=== PATIENT | female | born 2000 | race Two or more races ===

== ENCOUNTER 2023-03-21 23:55 | Emergency (ER) | payer OTHER ==
[~2023-03-21] VITALS: Ht 162.6 cm; Wt 106.0 kg
[2023-03-22 01:27] LABS: Basophils # (auto) 0 10 ^3/uL (0-0.2); Basophils % (auto) 0.2 % (0.0-2.0); Eosinophils # (auto) 0.2 10 ^3/uL (0-0.8); Eosinophils % (auto) 2.1 % (0.0-7.0); Hematocrit 33.5 % (36.0-46.0); Lymphocytes # (auto) 1.9 10 ^3/uL (0.4-5.4); Lymphocytes % (auto) 19.3 % (10.0-50.0); Mean Corpuscular Hemoglobin 27.5 pg (28.0-32.0); Mean Corpuscular Hgb Conc. 32.9 g/dL (32.0-36.0); Mean Corpuscular Volume 83.7 fL (80.0-100.0); Monocytes # (auto) 0.7 10 ^3/uL (0-1.3); Monocytes % (auto) 6.5 % (0.0-12.0); Neutrophils # (auto) 7.2 10 ^3/uL (1.6-8.6); Neutrophils % (auto) 71.9 % (37.0-80.0); Nucleated Red Blood Cells % 0.1 %; Red Blood Cells 4.01 10^6/uL (4.0-5.20); Red Cell Distribution Width 18.2 % (11.8-14.3)
[2023-03-22 01:33] LABS: Albumin 3.3 g/dL (3.4-5.0); Calcium 8.6 mg/dL (8.5-10.1); Potassium 3.8 mmol/L (3.5-5.1)
[2023-03-22 01:34] LABS: BUN/Creatinine Ratio 19.7 (10.0-20.0)
[2023-03-22 01:47] LABS: Bilirubin, Total 0.2 mg/dL (0.2-1.0); Total Protein 7.5 g/dL (6.4-8.2)
[2023-03-22 02:12] LABS: Urine Bacteria FEW /hpf (None Seen); Urine Blood Negative /uL (Negative); Urine Mucus FEW (None Seen); Urine Specific Gravity 1.023 (1.001-1.035); Urine WBC 24 /hpf (0 - 5)
[2023-03-22] MEDS ORDERED: CEPH500T PO (02:29)
[2023-03-22] MEDS ORDERED: PHEN95TA10 PO (02:29)
[2023-03-22] MEDS ORDERED: ACET-6 PO (02:29)
[2023-03-22] MEDS ORDERED: CEPHALEXIN 250 MG CAP PO ONE (02:30)
[2023-03-22] MEDS ORDERED: PHENAZOPYRIDINE HCL 100 MG TAB PO ONE (02:30)
[2023-03-22 03:33] VITALS: BP 128/53
== END 2023-03-22 03:39 | disposition home or self-care (01) ==
LOC: ER 23:55
DX: N39.0 Urinary tract infection, site not specified (principal)
CPT/HCPCS: 36415; 80053; 81001; 85025

== ENCOUNTER 2023-04-15 21:28 | Emergency (ER) | payer OTHER ==
[~2023-04-15] VITALS: Ht 162.6 cm; Wt 106.2 kg
[~2023-04-15 21:28] MED LIST: ACET-6 PO; CEPH500T PO; PHEN95TA10 PO
[2023-04-15 22:17] LABS: Basophils # (auto) 0 10 ^3/uL (0-0.2); Basophils % (auto) 0.3 % (0.0-2.0); Eosinophils # (auto) 0.1 10 ^3/uL (0-0.8); Hemoglobin 11.6 g/dL (12.2-16.2); Monocytes # (auto) 0.7 10 ^3/uL (0-1.3); White Blood Cell 8.6 10^3/uL (4.4-10.8)
[2023-04-15 22:19] LABS: Eosinophils % (auto) 1.5 % (0.0-7.0); Hematocrit 35.9 % (36.0-46.0); Lymphocytes # (auto) 1.9 10 ^3/uL (0.4-5.4); Lymphocytes % (auto) 22.5 % (10.0-50.0); Mean Corpuscular Hemoglobin 27.5 pg (28.0-32.0); Mean Corpuscular Hgb Conc. 32.3 g/dL (32.0-36.0); Mean Corpuscular Volume 85.3 fL (80.0-100.0); Monocytes % (auto) 7.8 % (0.0-12.0); Neutrophils # (auto) 5.8 10 ^3/uL (1.6-8.6); Neutrophils % (auto) 67.9 % (37.0-80.0); Red Blood Cells 4.21 10^6/uL (4.0-5.20); Red Cell Distribution Width 15.5 % (11.8-14.3)
[2023-04-15 22:38] LABS: Albumin 3.6 g/dL (3.4-5.0); Calcium 8.8 mg/dL (8.5-10.1); Potassium 3.9 mmol/L (3.5-5.1)
[2023-04-15 22:42] LABS: BUN/Creatinine Ratio 14.1 (10.0-20.0); Bilirubin, Total 0.4 mg/dL (0.2-1.0); Total Protein 8.1 g/dL (6.4-8.2)
[2023-04-15 23:13] LABS: Urine Bacteria NONE SEEN /hpf (None Seen); Urine Blood Negative /uL (Negative); Urine WBC <1 /hpf (0 - 5)
[2023-04-16 05:25] VITALS: BP 130/78; PULSE 70; RESP 15; TEMP 97.9; O2SAT 99
== END 2023-04-16 05:40 | disposition home or self-care (01) ==
LOC: ER 21:28
DX: N93.8 Other specified abnormal uterine and vaginal bleeding (principal); R11.2 Nausea with vomiting, unspecified; R10.2 Pelvic and perineal pain; Z87.440 Personal history of urinary (tract) infections
CPT/HCPCS: 36415; 74176; 80053; 81001; 84702; 85025; 86850; 86900; 86901

== ENCOUNTER 2024-05-23 21:39 | Emergency (ER) | payer MEDICAID, OTHER ==
[~2024-05-23] VITALS: Ht 162.6 cm; Wt 118.0 kg
[2024-05-23 22:35] VITALS: BP 129/61; TEMP 98.5
[2024-05-23] MEDS: ONDANSETRON ODT 4 MG TAB PO ONE (22:47)
[2024-05-23 22:48] VITALS: PULSE 69; RESP 17; O2SAT 99
[2024-05-23] MEDS: DexAMETHasone SOD PHOS 10MG/1ML VIAL INJ IM ONE (22:48)
[2024-05-23] MEDS: KETOROLAC TROMETH 60MG/2ML VIAL IM ONE (22:48)
[2024-05-24] MEDS ORDERED: NAP500T PO (00:24)
[2024-05-24] MEDS ORDERED: METH-1182 PO (00:24)
== END 2024-05-24 00:31 | disposition home or self-care (01) ==
LOC: ER 21:39
DX: G43.909 Migraine, unspecified, not intractable, without status migrainosus (principal)
CPT/HCPCS: 96372; 99284; J1100; J1885; Q0162